=== PATIENT | female | born 1950 | race Caucasian/White ===

== ENCOUNTER → 2023-03-28 | Outpatient (CLI) | payer MEDICARE | END | disposition home or self-care (01) | LOC: RESCLI 13:49 | PROVIDERS: ATTEND Family Medicine | DX: E11.9 Type 2 diabetes mellitus without complications (principal); R42 Dizziness and giddiness; M25.561 Pain in right knee; F41.1 Generalized anxiety disorder; N32.89 Other specified disorders of bladder; A60.9 Anogenital herpesviral infection, unspecified; E78.5 Hyperlipidemia, unspecified; Z98.890 Other specified postprocedural states; Z88.0 Allergy status to penicillin; Z79.899 Other long term (current) drug therapy ==